=== PATIENT | female | born 1965 | race Caucasian/White ===

== ENCOUNTER 2022-07-05 14:26 | Emergency (ER) | payer OTHER ==
[2022-07-05 14:51] VITALS: BP 117/73; PULSE 94; RESP 19; TEMP 98.3; BMI 25.7
[2022-07-05] MEDS ORDERED: AZITHROMYCIN 500 MG TABLET PO ONE (16:57)
[2022-07-05] MEDS ORDERED: AZITHROMYCIN 250 MG TABLET ONE (16:59)
== END 2022-07-05 17:04 | disposition home or self-care (01) ==
LOC: JER 14:26
DX: J18.9 Pneumonia, unspecified organism (principal)
CPT/HCPCS: 0241U-QW; 71046-TC-FY; 99284-25

== ENCOUNTER 2024-09-19 09:37 | Emergency (ER) | payer OTHER ==
[2024-09-19 09:53] VITALS: BP 132/76; PULSE 93; RESP 18; TEMP 97.7; BMI 24.5
[2024-09-19 11:21] LABS: THROAT:GRP A STREP NOT DETECTED (NOTDETECTED)
== END 2024-09-19 12:28 | disposition home or self-care (01) ==
LOC: JER 09:37
DX: R05.9 Cough, unspecified (principal); J22 Unspecified acute lower respiratory infection; M79.10 Myalgia, unspecified site; R68.83 Chills (without fever); Z20.822 Contact with and (suspected) exposure to COVID-19
CPT/HCPCS: 0241U-QW; 71046-TC-FY; 87651; 99284-25